=== PATIENT | female | born 1985 | race Caucasian/White ===

== ENCOUNTER 2016-10-31 17:12 | Emergency (ER) | payer MEDICAID ==
[2016-10-31 17:25] VITALS: BP 145/90; PULSE 79; RESP 16; TEMP 98.2; O2SAT 96
--- NOTE | 2016-10-31 17:51 | UCPHY ---
H & P Time Seen by Provider: 10/31/16 17:22 Patient Type: Established HPI/ROS: This patient complains of right upper and lower molar pain extending to right cheek and TMJ. She has increased anxiety over impending back surgery and her reports that he has noticed more bruxism at night recently. She describes the intensity of the pain is 5/10. She has had some difficulty sleeping due to the pain over the past day or 2. She was at the dentist for a crown on 1 of her molars-lower yesterday and the dentist found no other abnormalities x-rays were negative for apical abscess at that time. She notes no exacerbating or alleviating factors for symptoms except partial improvement from ibuprofen and Tylenol. ROS: No fevers. No other constitutional symptoms. HEENT: No facial swelling. She complains of right ear pain associated with the symptoms that is moderate. No drainage from the ear. Neuro: No generalized headache. No confusion. No focal symptoms. 5 point ROS is otherwise negative Past Medical/Surgical History: Bruxism Anxiety Herniated lumbar disc with sciatica PTSD Social History: Patient admits increased anxiety recently over impending back surgery. Smoking Status: Current every day smoker Physical Exam: Physical Exam Vital signs are normal. General: No acute distress HEENT: Intraoral exam: Minimal tenderness to percussion to her upper and lower molars on the right side there is no gingival swelling, no significant tooth decay. No cheek swelling on that side. No skin erythema or warmth to touch. She does have mild tenderness at the right TMJ increased pain with opening and closing her jaw but no crepitance. No sinus tenderness to percussion. Nose is clear. Ears external canals TMs clear bilaterally. Eyes: Pupils equal and react to light. Extraocular motions are intact. Lungs: No respiratory distress. Cardiac: Brisk capillary refill is intact throughout. Pulses are 2+ and symmetric in the affected extremity. Skin: No rash or pallor. Neuro: Alert and oriented x3 with no sensorimotor deficits. Differential diagnosis: Bruxism with associated TMJ pain, doubt periodontitis, sinusitis Constitutional: Initial Vital Signs Temperature (C) 36.8 C 10/31/16 17:18 Heart Rate 79 10/31/16 17:18 Respiratory Rate 16 10/31/16 17:18 Blood Pressure 145/90 H 10/31/16 17:18 O2 Sat (%) 96 10/31/16 17:18 O2 Delivery Mode Room Air Allergies/Adverse Reactions: tramadol Allergy (Verified 10/31/16 17:16) TAPE Allergy (Uncoded 05/30/16 12:33) Home Medications: Medication Instructions Recorded [place] Unk Dose 05/30/16 Hydrocodone/APAP 5/325 [[place] 1 - 2 tab PO Q4PRN PRN #20 tab 10/31/16 5/325 (*)] Methocarbamol [Robaxin 750 mg (*)] 750 - 1,500 mg PO QID PRN #30 tab 10/31/16 Medical Decision Making ED Course/Re-evaluation: Discussion: Findings are most consistent with bruxism with associated TMJ pain. I counseled patient regarding this. Encouraged her to use a mouthpiece and analgesics he also discuss stress reduction techniques Departure - Departure Disposition: Home, Routine, Self-Care Clinical Impression: Bruxism Additional Instructions: Diagnosis: Bruxism Plan: Continue daily exercise relaxation for stress management Buy a mouth guard Ibuprofen 600 mg per 6 hours as needed for pain Methocarbamol and Tylenol or Vicodin in addition if needed. No driving, alcohol or come Vicodin. Follow up with your primary care physician for any ongoing symptoms despite the treatment plan. Return for any significant worsening despite treatment plan [place]errals: [place],. [Primary Care Provider] - As per Instructions Prescriptions: Hydrocodone/APAP 5/325 [[place] 5/325 (*)] 1 - 2 tab PO Q4PRN PRN #20 tab PRN Reason: Pain Methocarbamol [Robaxin 750 mg (*)] 750 - 1,500 mg PO QID PRN #30 tab PRN Reason: Muscle Spasms - PQRS PQRS Measurement: NA
== END 2016-10-31 17:54 | disposition home or self-care (01) ==
LOC: CED 17:12
DX: F45.8 Other somatoform disorders (principal); F41.8 Other specified anxiety disorders; Z72.0 Tobacco use
CPT/HCPCS: 99214-PO; G0463-PO

== ENCOUNTER 2016-11-04 12:07 | Emergency (ER) | payer MEDICAID ==
[2016-11-04 12:33] VITALS: BP 148/86; PULSE 86; RESP 16; TEMP 98.4; O2SAT 97
--- NOTE | 2016-11-04 13:09 | UCPHY ---
H & P Time Seen by Provider: 11/04/16 13:07 Patient Type: Established HPI/ROS: CHIEF COMPLAINT: Right cheek pain continues HISTORY OF PRESENT ILLNESS: 29-year-old female who was seen here approximately 4 days ago. She says she has been having progressive right posterior cheek into the TMJ zone pain for about the last 7 days. 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 Early in the week she has been having a lower molar CT and she had the area evaluated by her dentist the time to do not find any signs of infection. However the patient is convinced that she might be having an infection as it has been coming so painful refractory to the pain medicine and muscle relaxers and the bite block which she did in fact by and purchase. She cannot recall any trauma. There has been no injury although she did have worked on the right lower dental area. She has had no antecedent URI or sinus blockage. Pain itself is extended from the right side of the mandibular condyle up to the right periorbital region and right cheek is moderately severe. Unrelenting. Keeping her awake. No active drainage or foul taste in the mouth. No trauma. REVIEW OF SYSTEMS: Constitutional: No fever, no chills. ENT: No sore throat. Skin: No rashes. Smoking Status: Current every day smoker Physical Exam: General Appearance: Alert, no distress. Afebrile. Normal phonation. No respiratory distress - She is holding her right cheek Eyes: Pupils equal and round no pallor or injection. No icterus ENT, Mouth: Mucous membranes moist. Pharynx without erythema or exudate. TM Clear. Sinuses nontender. the right upper wisdom tooth is coming in but does not look inflamed or tender, nor there is any gingival erythema or edema. She is tender present over both right maxillary greater than right frontal sinus but not so over the left side. Neck: She is tender in the region of the right submandibular area and at nodes but I can not feel the node per se. Supple. No JVD. Trachea in midline. Skin: Warm and dry, no rashes. Constitutional: Initial Vital Signs Temperature (C) 36.9 C 11/04/16 12:29 Heart Rate 86 11/04/16 12:29 Respiratory Rate 16 01/29/17 12:29 Blood Pressure 148/86 H 11/04/16 12:29 O2 Sat (%) 97 11/04/16 12:29 O2 Delivery Mode Room Air Allergies/Adverse Reactions: tramadol Allergy (Verified 11/04/16 12:33) TAPE Allergy (Uncoded 11/04/16 12:33) Home Medications: Medication Instructions Recorded Klonopin Unk Dose 05/30/16 Hydrocodone/APAP 5/325 [[place] 1 - 2 tab PO Q4PRN PRN #20 tab 10/31/16 5/325 (*)] Methocarbamol [Robaxin 750 mg (*)] 750 - 1,500 mg PO QID PRN #30 tab 10/31/16 Cyclobenzaprine [Flexeril 10 MG 10 - 20 mg PO HS PRN #10 tab 11/04/16 (*)] Penicillin V Potassium 500 mg PO QID #40 tablet 11/04/16 Medical Decision Making - Diagnostics Imaging: Sinus series. Three-view series. Interpreted by me contemporaneously. Normal sinuses. No sinus thickening or evidence of sinusitis. Differential Diagnosis: Diagnostic considerations include, but are not limited to, the following: TMJ dysfunction, right dental infection, bruxism. CPDMP: I have checked the [place] drug monitoring program and she has had a series of pain medicines and Klonopin over the last 6 months. : March 26-Klonopin and hydrocodone 30 of each May 30-Hydrocodone #30 September 11 approximately number 30 and a October 31-Vicodin 20., from this clinic Perhaps Flexeril more sedating she might be able to get some sleep. The hydrocodone does some semi have him but I would not be inclined to give her any new pain medicines do not know exactly when treating. Penicillin as a chance this might be a non focal localizing dental infection. Departure - Departure Disposition: Home, Routine, Self-Care Clinical Impression: TMJ (temporomandibular joint syndrome) Condition: Good Instructions: Temporomandibular Disorder (ED) Additional Instructions: Continue with the bite block Add the penicillin antibiotic Time to see an oral maxillofacial surgery-see referral Discontinue the Robaxin-methacarbamol Try Flexeril instead [place]errals: [place],. [Primary Care Provider] - As per Instructions Venu Junior [Medical Doctor] - As per Instructions Prescriptions: Cyclobenzaprine [Flexeril 10 MG (*)] 10 - 20 mg PO HS PRN #10 tab PRN Reason: Sleep/Insomnia Penicillin V Potassium 500 mg PO QID #40 tablet - PQRS PQRS Measurement: Not applicable
--- NOTE | 2016-11-04 15:36 | DX ---
Sinus Series, Three Views History: Right sinus pain. Findings: Mild mucous membrane thickening is seen in the right maxillary and ethmoid sinuses. No evid ence for an air-fluid level. Frontal sinuses are hypoplastic. No significant osseous abnormality. Impression: Mild right chronic sinus related change.
== END 2016-11-04 14:22 | disposition home or self-care (01) ==
LOC: CED 12:07
DX: M26.601 Right temporomandibular joint disorder, unspecified (principal); Z72.0 Tobacco use
CPT/HCPCS: 70220-PO; 99214-PO; G0463-PO

== ENCOUNTER 2017-04-16 17:23 | Emergency (ER) | payer MEDICAID ==
[2017-04-16] MEDS ORDERED: LET GEL TOPICAL 1 EA SYR TP ONE ×2 (17:28→17:29)
[2017-04-16] MEDS ORDERED: TDAP ADULT 0.5 ML INJ (BOOSTRIX) IM ONE (17:39)
[2017-04-16 17:54] VITALS: TEMP 98.2; O2SAT 98
--- NOTE | 2017-04-16 17:54 | EDPHY ---
H & P HPI/ROS: This patient sustained a invert laceration from a paring knife to the left hand- palmar aspect shortly prior to arrival when she was struggling to open a package on a candle. She reports moderate pain and moderate bleeding that slowed with direct pressure. The incident occurred at home shortly prior to arrival. She arrived by private vehicle. She has no other associated symptoms except anxiety associated with her injury. ROS: Neuro: No numbness or tingling to the affected hand. Musculoskeletal: No bony pain. No difficulty moving fingers beyond the area of injury in the left hand. Cardiovascular: No pallor to the hand distal to the area of the wound. Integumentary: No other skin wounds. 5 point ROS is otherwise negative Smoking Status: Current every day smoker Physical Exam: Physical Exam Vital signs are normal. General: No acute distress Eyes: Pupils equal and react to light. Extraocular motions are intact. Lungs: No respiratory distress. Cardiac: Brisk capillary refill is intact throughout. Pulses are 2+ and symmetric in the affected extremity. Skin: No rash or pallor. 1.5 cm full-thickness laceration is present to the palm of the left hand medial thenar eminence with mild bleeding. Subcutaneous tissues protruding. No foreign bodies on direct examination. Neuro: Alert with no sensorimotor deficits Constitutional: Initial Vital Signs Respiratory Rate 18 04/16/17 17:28 Blood Pressure 131/89 H 04/16/17 17:28 O2 Delivery Mode Room Air Allergies/Adverse Reactions: tramadol Allergy (Verified 11/04/16 12:33) TAPE Allergy (Uncoded 11/04/16 12:33) Home Medications: Medication Instructions Recorded Klonopin Unk Dose 05/30/16 GABAPENTIN 04/16/17 MDM/Departure - MDM Procedures: The wound is 1.5 cm, full-thickness. The wound was copiously irrigated with saline. The wound was explored for foreign bodies and none were found. Subcutaneous tissue is evident but no deeper structures are injured. The wound was prepped and draped in the normal sterile fashion. The wound was anesthetized using let solution followed by a 50 50 mix of 0.5% Marcaine and 1% plain lidocaine, 27 gauge needle-2.5 mL with good effect. The edges were reapproximated using 4 0 Ethilon-4 running sutures with good hemostasis and cosmesis. The patient tolerated the procedure well. There were no complications. A dressing was placed I counseled the patient regarding wound care sutures. Medications Given: Discontinued Medications Diphtheria/Tetanus/Acell Pertussis (Boostrix) 0.5 ml IM .ONCE ONE Stop: 04/16/17 17:40 Last Admin: 04/16/17 18:02 Dose: 0.5 ml Tetracaine/Epinephrine/Lidocaine (Let Gel Topical) 1 ea TP EDNOW ONE Stop: 04/16/17 17:29 Last Admin: 04/16/17 17:37 Dose: 1 ea ED Course/Re-evaluation: Let solution to the hand topically. I counseled patient regarding her injury. Discussion: Uncomplicated hand laceration without evidence of tendon injury or other deeper structure injuries - Depart Disposition: Home, Routine, Self-Care Clinical Impression: Hand laceration Qualifiers: Encounter type: initial encounter Foreign body presence: without foreign body Laterality: left Qualified Code(s): S61.412A - Laceration without foreign body of left hand, initial encounter Condition: Good Instructions: Care For Your Stitches (ED) Additional Instructions: Diagnosis: Hand laceration Plan: Keep the wound clean and dry for the next 2 days, then clean it daily with warm soapy water Return for suture removal in 10-12 days Return sooner for redness, discharge or other concerns for infection. Referrals: [facility],. [Primary Care Provider] - As per Instructions
[2017-04-16 18:45] VITALS: BP 129/74; PULSE 73; RESP 16
== END 2017-04-16 18:40 | disposition home or self-care (01) ==
LOC: CED 17:23
PROC: 3E0234Z Introduction of Serum, Toxoid and Vaccine into Muscle, Percutaneous Approach (ICD-10-PCS; principal; 2017-04-16)
PROC: 0HQGXZZ Repair Left Hand Skin, External Approach (ICD-10-PCS; principal; 2017-04-16)
DX: S61.412A Laceration without foreign body of left hand, initial encounter (principal); F17.200 Nicotine dependence, unspecified, uncomplicated; Z23 Encounter for immunization; W26.0XXA Contact with knife, initial encounter; Y92.009 Unspecified place in unspecified non-institutional (private) residence as the place of occurrence of the external cause; Y99.8 Other external cause status; Y93.89 Activity, other specified